=== PATIENT | female | born 1935 | race Asian ===

== ENCOUNTER 2017-03-05 05:40 | Day surgery (SDC) | payer MEDICARE, OTHER ==
[~2017-03-05] VITALS: Ht 149.9 cm; Wt 59.1 kg
[2017-03-05] MEDS ORDERED: SODIUM CHLORIDE 0.9% 1,000 ML IV ONE ×2 (06:30→06:55)
[2017-03-05 07:22] LABS: GLUCOSE,POINT OF CARE 113 MG/DL (70-110)
[2017-03-05] MEDS ORDERED: NAPR-58 PO (07:27)
[2017-03-05] MEDS ORDERED: SIMV-260 PO (07:27)
[2017-03-05] MEDS ORDERED: GLIP5 PO (07:27)
[2017-03-05] MEDS ORDERED: ZOLP5 PO (07:27)
[2017-03-05] MEDS ORDERED: LISI-661 PO (07:27)
[2017-03-05] MEDS ORDERED: MIDAZOLAM HCL 2 MG/2 ML VIAL ONE (07:59)
[2017-03-05] MEDS ORDERED: FentaNYL CITRATE-PF 100 MCG/2 ML VIAL ONE (07:59)
[2017-03-05] MEDS ORDERED: ALBUTEROL SULFATE 2.5 MG/0.5 ML NEB SOLUTION NEB ONE ×2 (08:35→17:31)
[2017-03-05] MEDS ORDERED: MethylPREDNISolone SOD SUCC 125 MG/2 ML VIAL IVP ONE (08:45)
[2017-03-05] MEDS ORDERED: MethylPREDNISolone SOD SUCC 125 MG/2 ML VIAL ONE (09:03)
[2017-03-05] MEDS ORDERED: LIDOCAINE HCL 2% 5 ML JELLY ONE (17:31)
[2017-03-05] MEDS ORDERED: BENZOCAINE 20% 50 MCG/SPRAY 57 GM ONE (17:31)
[2017-03-05] MEDS ORDERED: LIDOCAINE HCL 4% 50 ML SOLUTION ONE (17:31)
[2017-03-05] MEDS ORDERED: OXYGEN THERAPY IH SCH (20:00)
== END 2017-03-05 10:10 | disposition home or self-care (01) ==
LOC: SURGERY 05:40
PROVIDERS: ATTEND Internal Medicine Critical Care Medicine
DX: J38.4 Edema of larynx (principal); B37.0 Candidal stomatitis; E11.9 Type 2 diabetes mellitus without complications; J44.9 Chronic obstructive pulmonary disease, unspecified; E78.00 Pure hypercholesterolemia, unspecified; Z90.49 Acquired absence of other specified parts of digestive tract
CPT/HCPCS: 31623; 31624; 71010; 82962; 87015 ×2; 87070; 87101; 87147; 87205; 87220; 88108; 88312; 93005; J2250; J2930; J3010; J7030